=== PATIENT | female | born 1975 | race Caucasian/White ===

== ENCOUNTER 2017-03-09 10:27 | Emergency (ER) | payer OTHER ==
[~2017-03-09] VITALS: Ht 165.1 cm; Wt 105.7 kg
[2017-03-09 11:26] LABS: HEMATOCRIT 42.2 % (36.0-46.0); MCH 29.5 PG (29.0-34.0); MCV 92.3 FL (83-99); MEAN PLAT.VOLUME 10.2 uM^3 (9.5-12.4); PLATELET COUNT 314 K/uL (156-360); RBC DIS.WIDTH-CV 13.7 % (11.8-14.6); RBC DIS.WIDTH-SD 46.2 % (39-53); RED BLOOD COUNT 4.57 M/uL (3.80-5.20); WHITE BLOOD COUNT 7.7 K/uL (4.1-10.2)
[2017-03-09 11:36] LABS: CHLORIDE 109 mEq/L (99-109); POTASSIUM 4.1 mEq/L (3.7-5.4); SODIUM 140 mEq/L (136-147)
[2017-03-09 11:38] LABS: GLUCOSE 102 mg/dL (70-99)
[2017-03-09 11:39] LABS: ANION GAP 7 MEQ/L (2-14)
[2017-03-09 11:40] LABS: TOTAL BILIRUBIN 0.5 mg/dL (0.0-1.0)
[2017-03-09 11:41] LABS: ALKALINE PHOSPHATASE 73 IU/L (3-129); CHLORIDE 109 mEq/L (99-109); POTASSIUM 4.2 mEq/L (3.7-5.4); SODIUM 141 mEq/L (136-147)
[2017-03-09 11:43] LABS: GLUCOSE 100 mg/dL (70-99); UREA NITROGEN (BUN) 12 mg/dL (9-23)
[2017-03-09 11:44] LABS: ANION GAP 8 MEQ/L (2-14); GFR ESTIMATE (CALCULATED) > 59 mL/min/
[2017-03-09 11:47] LABS: UREA NITROGEN (BUN) 12 mg/dL (9-23)
[2017-03-09 11:50] LABS: GFR ESTIMATE (CALCULATED) > 59 mL/min/
[2017-03-09 12:07] LABS: QUANTITATIVE HCG < 4.0 MIU/ML
[2017-03-09 14:22] LABS: TROP-I INTERPRETATION NEGATIVE; TROPONIN-I 0.06 ng/mL (0.0-0.30)
[2017-03-09 15:31] LABS: TROP-I INTERPRETATION NEGATIVE; TROPONIN-I < 0.01 ng/mL (0.0-0.30)
[2017-03-09 15:48] VITALS: BP 122/83
== END 2017-03-09 15:49 | disposition home or self-care (01) ==
LOC: EME 10:27
PROVIDERS: Nurse Practitioner Family
DX: R60.9 Edema, unspecified (principal); R06.2 Wheezing
CPT/HCPCS: 71020; 80048; 80053; 84484; 84702; 85027; 93005; 99281; 99284